=== PATIENT | female | born 1995 ===

== ENCOUNTER 2020-03-25 07:10 | Inpatient (IN) | payer BC ==
[2020-03-25] MEDS ORDERED: Nalbuphine 10 MG/1 ML Vial IVPUSH PRN (08:07)
[2020-03-25] MEDS ORDERED: Water For Irrigation,Sterile 1,000 ML Container IRR PRN (08:07)
[2020-03-25] MEDS ORDERED: Misoprostol 200 MCG Tab PO PRN (08:07)
[2020-03-25] MEDS ORDERED: Butorphanol 1 MG/ML SDV IVPUSH PRN (08:07)
[2020-03-25] MEDS ORDERED: Ondansetron 4 MG/2 ML SDV IVPUSH PRN (08:07)
[2020-03-25] MEDS ORDERED: Tranexamic Acid 1,000 MG in Sodium Chloride 0.9% 100 ML IV PRN (08:07)
[2020-03-25] MEDS ORDERED: Carboprost Tromethamine 250 MCG/1 ML Amp IM PRN (08:07)
[2020-03-25] MEDS ORDERED: Terbutaline 1 MG/ML SDV SUBCUT PRN (08:07)
[2020-03-25] MEDS ORDERED: Lidocaine 1% 50 ML MDV INJECT PRN (08:07)
[2020-03-25] MEDS ORDERED: Sodium Chloride 0.9% 10 ML SDV IV PRN (08:07)
[2020-03-25] MEDS ORDERED: Sodium Chloride 0.9% 2.5 ML Syringe FLUSH PRN (08:07)
[2020-03-25] MEDS ORDERED: Methylergonovine 0.2 MG/1 ML Amp IM PRN (08:07)
[2020-03-25] MEDS ORDERED: Misoprostol 25 MCG (1/4 of 100 MCG) Tab VAG PRN ×2 (08:07)
[2020-03-25] MEDS ORDERED: Sodium Chloride 0.9% 10 ML Syringe FLUSH PRN (08:07)
[2020-03-25] MEDS ORDERED: Oxytocin/0.9 % Sodium Chloride 30 UNIT/500 ML BAG IV SCH ×2 (08:15)
[2020-03-25] MEDS ORDERED: Ampicillin 2 GM in Sodium Chloride 0.9% 100 ML IV ONE (08:30)
[2020-03-25] MEDS ORDERED: Ampicillin 2 GM AdvVial IV ONE (09:38)
[2020-03-25] MEDS: Lactated Ringers 1,000 ML IV SCH ×2 (09:45→12:26)
[2020-03-25 09:56] LABS: BLOOD UREA NITROGEN,BUN 7 mg/dL (7.0-18.0); CARBON DIOXIDE,CO2 19.9 mmol/L (21.0-32.0); CHLORIDE,CL 105 mmol/L (98-107); GLUCOSE RANDOM 76 mg/dL (74-106); POTASSIUM,K 4.1 mmol/L (3.5-5.1); SODIUM,NA 137 mmol/L (136-145)
[2020-03-25] MEDS ORDERED: fentaNYL 100 MCG/2 ML SDV ONE ×2 (12:19→17:22)
[2020-03-25] MEDS ORDERED: Bupivacaine 0.25% 10 ML SDV ONE (12:20)
[2020-03-25] MEDS ORDERED: Bupivicaine/fentaNYL/NS 250 ML ONE (12:20)
[2020-03-25] MEDS ORDERED: Ampicillin 1 GM in Sodium Chloride 0.9% 100 ML IV ONE (12:30)
[2020-03-25] MEDS: Ampicillin 1 GM in Sodium Chloride 0.9% 50 ML IV SCH ×2 (12:44→16:16)
--- NOTE | 2020-03-25 12:55 | PCM.PREANE ---
Preanesthetic Assessment - Anesthesia/Transfusion/Family Hx Anesthesia History: No Prior Anesthesia Family History of Anesthesia Reaction: No - Review of Systems General: No Symptoms Pulmonary: No Symptoms Cardiovascular: No Symptoms Gastrointestinal: Abdominal Pain Neurological: No Symptoms - Physical Assessment NPO Status Date: 03/25/20 Height: 5 ft 7 in Weight: 78.018 kg ASA Class: 2 Airway Class: Mallampati = 2 Dentition: Reports: Normal Dentition ROM/Head Extension: Full Lungs: Clear to Auscultation - Lab Values: Laboratory Last Values WBC 8.85 K/uL (4.0-11.0) 03/25/20 09:13 RBC 3.77 M/uL (4.30-5.90) L 03/25/20 09:13 Hgb 11.5 g/dL (12.0-16.0) L 03/25/20 09:13 Hct 34.8 % (36.0-46.0) L 03/25/20 09:13 MCV 92.3 fL (80.0-98.0) 03/25/20 09:13 MCH 30.5 pg (27.0-32.0) 03/25/20 09:13 MCHC 33.0 g/dL (31.0-37.0) 03/25/20 09:13 RDW Std Deviation 43.5 fl (28.0-62.0) 03/25/20 09:13 RDW Coeff of Anna 13 % (11.0-15.0) 03/25/20 09:13 Plt Count 173 K/uL (150-400) 03/25/20 09:13 MPV 11.70 fL (7.40-12.00) 03/25/20 09:13 Nucleated RBC % 0.0 /100WBC 03/25/20 09:13 Nucleated RBCs # 0 K/uL 03/25/20 09:13 Sodium 137 mmol/L (136-145) 03/25/20 09:13 Potassium 4.1 mmol/L (3.5-5.1) 03/25/20 09:13 Chloride 105 mmol/L (98-107) 03/25/20 09:13 Carbon Dioxide 19.9 mmol/L (21.0-32.0) L 03/25/20 09:13 BUN 7 mg/dL (7.0-18.0) 03/25/20 09:13 Creatinine 0.6 mg/dL (0.6-1.0) 03/25/20 09:13 Est Cr Clr Drug Dosing 138.17 mL/min 03/25/20 09:13 Estimated GFR (MDRD) > 60.0 ml/min 03/25/20 09:13 Glucose 76 mg/dL (74-106) 03/25/20 09:13 Uric Acid 4.9 mg/dL (2.6-7.2) 03/25/20 09:13 Calcium 8.0 mg/dL (8.5-10.1) L 03/25/20 09:13 Total Bilirubin 0.2 mg/dL (0.2-1.0) 03/25/20 09:13 AST 30 IU/L (15-37) 03/25/20 09:13 ALT 40 IU/L (14-63) 03/25/20 09:13 Alkaline Phosphatase 177 U/L (46-116) H 03/25/20 09:13 Total Protein 6.0 g/dL (6.4-8.2) L 03/25/20 09:13 Albumin 2.5 g/dL (3.4-5.0) L 03/25/20 09:13 Globulin 3.5 g/dL (2.6-4.0) 03/25/20 09:13 Albumin/Globulin Ratio 0.7 (0.9-1.6) L 03/25/20 09:13 SARS-CoV-2 RNA (BINTA) NEGATIVE (NEGATIVE) 03/25/20 07:58 Blood Type O NEGATIVE 03/25/20 09:13 Antibody Screen NEGATIVE 03/25/20 09:13 - Allergies Allergies/Adverse Reactions: Allergies Allergy/AdvReac Type Severity Reaction Status Date / Time latex Allergy Hives Verified 03/09/20 21:35 - Acknowledgements Anesthesia Type Planned: Epidural Pt an Appropriate Candidate for the Planned Anesthesia: Yes Alternatives and Risks of Anesthesia Discussed w Pt/Guardian: Yes Pt/Guardian Understands and Agrees with Anesthesia Plan: Yes PreAnesthesia Questionnaire - HOME MEDS Home Medications: Home Meds Omeprazole Magnesium [Prilosec Otc] 1 tab PO DAILY PRN 03/09/20 [History] Pnv No.95/Ferrous Fum/Folic AC [ Tablet] 1 tab PO DAILY 03/09/20 [History] - CURRENT (IN HOUSE) MEDS Current Meds: Current Medications Butorphanol Tartrate (Stadol) 1 mg IVPUSH Q1H PRN PRN Reason: Pain Carboprost Tromethamine (Hemabate Ds) 250 mcg IM ASDIRECTED PRN PRN Reason: Post Hemorrhage Lactated Ringer's (Ringers, Lactated) 1,000 mls @ 150 mls/hr IV ASDIRECTED ANNA Last Admin: 03/25/20 12:26 Dose: 999 mls/hr Documented by: Oxytocin/Sodium Chloride (Oxytocin 30 Unit/500 Ml-Ns) 30 unit in 500 mls @ 999 mls/hr IV TITRATE ANNA Tranexamic Acid 1,000 mg/ (Sodium Chloride) 110 mls @ 660 mls/hr IV ONETIME PRN PRN Reason: Bleeding Oxytocin/Sodium Chloride (Oxytocin 30 Unit/500 Ml-Ns) 30 unit in 500 mls @ 2 mls/hr IV TITRATE [facility]; Protocol Ampicillin Sodium 1 gm/ Sodium (Chloride) 50 mls @ 100 mls/hr IV Q4H [facility] Last Admin: 03/25/20 12:44 Dose: 100 mls/hr Documented by: Lidocaine HCl (Xylocaine 1%) 50 ml INJECT ONETIME PRN PRN Reason: Laceration repair Methylergonovine Maleate (Methergine) 0.2 mg IM ASDIRECTED PRN PRN Reason: Post Hemorrhage Misoprostol (Cytotec) 200 mcg PO ONETIME PRN PRN Reason: Post Hemorrhage Misoprostol (Cytotec) 25 mcg VAG ONETIME PRN PRN Reason: Cervical Ripening Misoprostol (Cytotec) 25 mcg VAG Q4H PRN PRN Reason: Cervical Ripening Nalbuphine HCl (Nubain) 10 mg IVPUSH Q1H PRN PRN Reason: Pain (severe 7-10) Ondansetron HCl (Zofran) 4 mg IVPUSH Q4H PRN PRN Reason: Nausea/Vomiting Sodium Chloride (Saline Flush) 10 ml FLUSH ASDIRECTED PRN PRN Reason: Keep Vein Open Sodium Chloride (Saline Flush) 2.5 ml FLUSH ASDIRECTED PRN PRN Reason: Keep Vein Open Sodium Chloride (Normal Saline) 10 ml IV ASDIRECTED PRN PRN Reason: IV Use Sterile Water (Sterile Water For Irrigation) 1,000 ml IRR ASDIRECTED PRN PRN Reason: delivery Terbutaline Sulfate (Brethine) 0.25 mg SUBCUT ASDIRECTED PRN PRN Reason: Tacysystole Discontinued Medications Ampicillin Sodium (Ampicillin) Confirm Administered Dose 4 gm IV .STK-MED ONE Stop: 03/25/20 09:39 Bupivacaine HCl (Sensorcaine-Mpf 0.25%) Confirm Administered Dose 10 ml .ROUTE .STK-MED ONE Stop: 03/25/20 12:21 Fentanyl (Sublimaze) Confirm Administered Dose 100 mcg .ROUTE .STK-MED ONE Stop: 03/25/20 12:20 Ampicillin Sodium 2 gm/ Sodium (Chloride) 100 mls @ 200 mls/hr IV ONETIME ONE Stop: 03/25/20 08:59 Last Admin: 03/25/20 09:45 Dose: 200 mls/hr Documented by: Ampicillin Sodium 1 gm/ Sodium (Chloride) 100 mls @ 200 mls/hr IV ONETIME ONE Stop: 03/25/20 12:59 Fentanyl/Bupivacaine HCl (Fentanyl/Bupivacaine/Ns 2 Mcg-0.125% 250 Ml) Confirm Administered Dose 250 mls @ as directed .ROUTE .STK-MED ONE Stop: 03/25/20 12:21
[2020-03-25] MEDS ORDERED: Lidocaine 2% with EPINEPHrine 1:100,000 20 ML MDV ONE (17:22)
--- NOTE | 2020-03-25 17:49 | PCM.PRNOTE ---
- Free Text/Narrative Note: Anes Note Patient reports incomplete analgesia in lower pelvis and perineal area. A sitting dose consisting of 100mcg fentanyl plus 6 cc 0.2% ropivicaine was given in a slow divided dose. Time [facility] patient [phone] Gray Ferreira CRNA
[2020-03-25] MEDS ORDERED: Benzocaine/Menthol 20%-0.5% Spray 78 GM Cannister TOP PRN (19:15)
[2020-03-25] MEDS ORDERED: Witch Hazel Medicated Pads 40/Jar TOP PRN (19:15)
[2020-03-25] MEDS ORDERED: Ibuprofen 400 MG Tab PO PRN (19:15)
[2020-03-25] MEDS ORDERED: Bisacodyl 10 MG Supp RECTAL PRN (19:15)
[2020-03-25] MEDS ORDERED: Acetaminophen 500 MG Tab PO PRN (19:15)
[2020-03-25] MEDS ORDERED: oxyCODONE 5 MG Tab PO PRN (19:15)
[2020-03-25] MEDS ORDERED: Lanolin 100% Cream 7 GM Tube TOP PRN (19:15)
--- NOTE | 2020-03-25 19:22 | PCM.DEL ---
L & D Note - General Info Date of Service: 03/25/20 - Delivery Note Labor: Spontaneous Delivery Outcome: Livebirth Presentation: Left Occiput Anterior (MAGDA) Nuchal Cord: None Anesthesia Type: None, Epidural Amniotic Fluid Description: Clear Episiotomy Type: Right Mediolateral Laceration: 2nd Degree Suture type: Other (monocryl) Suture size: 2-0 Cord: 3 Vessels Estimated Blood Loss: 300 Resuscitation Needed: No Score 1 min: 8 Score 5 min: 8 Delivery Comments (Free Text/Narrative):: Live Male delivered at 622pm , 8/8 , weight 3740g , - General Info Date of Service: 03/25/20 - Patient Data Weight - Most Recent: 78.018 kg I&O - Last 24 Hours: Intake & Output 03/25/20 03/25/20 03/25/20 06:59 14:59 22:59 Intake Total 1100 50 Balance 1100 50 Lab Results Last 24 Hours: Laboratory Results - last 24 hr 03/25/20 03/25/20 03/25/20 Range/Units 07:58 09:13 09:13 WBC 8.85 (4.0-11.0) K/uL RBC 3.77 L (4.30-5.90) M/uL Hgb 11.5 L (12.0-16.0) g/dL Hct 34.8 L (36.0-46.0) % MCV 92.3 (80.0-98.0) fL MCH 30.5 (27.0-32.0) pg MCHC 33.0 (31.0-37.0) g/dL RDW Std Deviation 43.5 (28.0-62.0) fl RDW Coeff of Anna 13 (11.0-15.0) % Plt Count 173 (150-400) K/uL MPV 11.70 (7.40-12.00) fL Nucleated RBC % 0.0 /100WBC Nucleated RBCs # 0 K/uL Sodium 137 (136-145) mmol/L Potassium 4.1 (3.5-5.1) mmol/L Chloride 105 (98-107) mmol/L Carbon Dioxide 19.9 L (21.0-32.0) mmol/L BUN 7 (7.0-18.0) mg/dL Creatinine 0.6 (0.6-1.0) mg/dL Est Cr Clr Drug Dosing 138.17 mL/min Estimated GFR (MDRD) > 60.0 ml/min Glucose 76 (74-106) mg/dL Uric Acid (2.6-7.2) mg/dL Calcium 8.0 L (8.5-10.1) mg/dL Total Bilirubin 0.2 (0.2-1.0) mg/dL AST 30 (15-37) IU/L ALT 40 (14-63) IU/L Alkaline Phosphatase 177 H (46-116) U/L Total Protein 6.0 L (6.4-8.2) g/dL Albumin 2.5 L (3.4-5.0) g/dL Globulin 3.5 (2.6-4.0) g/dL Albumin/Globulin Ratio 0.7 L (0.9-1.6) Urine Color Urine Appearance Urine pH (5.0-8.0) Ur Specific [place] (1.001-1.035) Urine Protein (NEGATIVE) mg/dL Urine Glucose (UA) (NEGATIVE) mg/dL Urine Ketones (NEGATIVE) mg/dL Urine Occult Blood (NEGATIVE) Urine Nitrite (NEGATIVE) Urine Bilirubin (NEGATIVE) Urine Urobilinogen (<2.0) EU/dL Ur Leukocyte Esterase (NEGATIVE) Urine RBC (0-2/HPF) Urine WBC (0-5/HPF) Ur Epithelial Cells (NONE-FEW) Urine Bacteria (NEGATIVE) Ur Random Creatinine mg/dL U Random Total Protein (<11.9) mg/dL Protein/Creatinin Ratio SARS-CoV-2 RNA (BINTA) NEGATIVE (NEGATIVE) Blood Type Antibody Screen 03/25/20 03/25/20 03/25/20 Range/Units 09:13 09:13 14:33 WBC (4.0-11.0) K/uL RBC (4.30-5.90) M/uL Hgb (12.0-16.0) g/dL Hct (36.0-46.0) % MCV (80.0-98.0) fL MCH (27.0-32.0) pg MCHC (31.0-37.0) g/dL RDW Std Deviation (28.0-62.0) fl RDW Coeff of Anna (11.0-15.0) % Plt Count (150-400) K/uL MPV (7.40-12.00) fL Nucleated RBC % /100WBC Nucleated RBCs # K/uL Sodium (136-145) mmol/L Potassium (3.5-5.1) mmol/L Chloride (98-107) mmol/L Carbon Dioxide (21.0-32.0) mmol/L BUN (7.0-18.0) mg/dL Creatinine (0.6-1.0) mg/dL Est Cr Clr Drug Dosing mL/min Estimated GFR (MDRD) ml/min Glucose (74-106) mg/dL Uric Acid 4.9 (2.6-7.2) mg/dL Calcium (8.5-10.1) mg/dL Total Bilirubin (0.2-1.0) mg/dL AST (15-37) IU/L ALT (14-63) IU/L Alkaline Phosphatase (46-116) U/L Total Protein (6.4-8.2) g/dL Albumin (3.4-5.0) g/dL Globulin (2.6-4.0) g/dL Albumin/Globulin Ratio (0.9-1.6) Urine Color YELLOW Urine Appearance CLEAR Urine pH 6.5 (5.0-8.0) Ur Specific [place] 1.020 (1.001-1.035) Urine Protein 30 H (NEGATIVE) mg/dL Urine Glucose (UA) NEGATIVE (NEGATIVE) mg/dL Urine Ketones TRACE H (NEGATIVE) mg/dL Urine Occult Blood LARGE H (NEGATIVE) Urine Nitrite NEGATIVE (NEGATIVE) Urine Bilirubin NEGATIVE (NEGATIVE) Urine Urobilinogen 0.2 (<2.0) EU/dL Ur Leukocyte Esterase NEGATIVE (NEGATIVE) Urine RBC 12-15 (0-2/HPF) Urine WBC 0-1 (0-5/HPF) Ur Epithelial Cells RARE (NONE-FEW) Urine Bacteria RARE (NEGATIVE) Ur Random Creatinine mg/dL U Random Total Protein (<11.9) mg/dL Protein/Creatinin Ratio SARS-CoV-2 RNA (BINTA) (NEGATIVE) Blood Type O NEGATIVE Antibody Screen NEGATIVE 03/25/20 Range/Units 14:33 WBC (4.0-11.0) K/uL RBC (4.30-5.90) M/uL Hgb (12.0-16.0) g/dL Hct (36.0-46.0) % MCV (80.0-98.0) fL MCH (27.0-32.0) pg MCHC (31.0-37.0) g/dL RDW Std Deviation (28.0-62.0) fl RDW Coeff of Anna (11.0-15.0) % Plt Count (150-400) K/uL MPV (7.40-12.00) fL Nucleated RBC % /100WBC Nucleated RBCs # K/uL Sodium (136-145) mmol/L Potassium (3.5-5.1) mmol/L Chloride (98-107) mmol/L Carbon Dioxide (21.0-32.0) mmol/L BUN (7.0-18.0) mg/dL Creatinine (0.6-1.0) mg/dL Est Cr Clr Drug Dosing mL/min Estimated GFR (MDRD) ml/min Glucose (74-106) mg/dL Uric Acid (2.6-7.2) mg/dL Calcium (8.5-10.1) mg/dL Total Bilirubin (0.2-1.0) mg/dL AST (15-37) IU/L ALT (14-63) IU/L Alkaline Phosphatase (46-116) U/L Total Protein (6.4-8.2) g/dL Albumin (3.4-5.0) g/dL Globulin (2.6-4.0) g/dL Albumin/Globulin Ratio (0.9-1.6) Urine Color Urine Appearance Urine pH (5.0-8.0) Ur Specific [place] (1.001-1.035) Urine Protein (NEGATIVE) mg/dL Urine Glucose (UA) (NEGATIVE) mg/dL Urine Ketones (NEGATIVE) mg/dL Urine Occult Blood (NEGATIVE) Urine Nitrite (NEGATIVE) Urine Bilirubin (NEGATIVE) Urine Urobilinogen (<2.0) EU/dL Ur Leukocyte Esterase (NEGATIVE) Urine RBC (0-2/HPF) Urine WBC (0-5/HPF) Ur Epithelial Cells (NONE-FEW) Urine Bacteria (NEGATIVE) Ur Random Creatinine 114.9 mg/dL U Random Total Protein 64.0 H (<11.9) mg/dL Protein/Creatinin Ratio 0.6 SARS-CoV-2 RNA (BINTA) (NEGATIVE) Blood Type Antibody Screen Med Orders - Current: Current Medications Acetaminophen (Tylenol Extra Strength) 500 mg PO Q4H PRN PRN Reason: Pain Acetaminophen (Tylenol Extra Strength) 1,000 mg PO Q4H PRN PRN Reason: Pain Benzocaine/Menthol (Dermoplast Pain Relief 20%-0.5% [place]) 78 gm TOP ASDIRECTED PRN PRN Reason: Perineal Comfort Measure Bisacodyl (Dulcolax) 10 mg RECTAL ONETIME PRN PRN Reason: Constipation Butorphanol Tartrate (Stadol) 1 mg IVPUSH Q1H PRN PRN Reason: Pain Carboprost Tromethamine (Hemabate Ds) 250 mcg IM ASDIRECTED PRN PRN Reason: Post Hemorrhage Docusate Sodium (Colace) 100 mg PO BID PRN PRN Reason: Constipation Emollient Ointment (Lansinoh Hpa) 0 gm TOP ASDIRECTED PRN PRN Reason: Sore Nipples Lactated Ringer's (Ringers, Lactated) 1,000 mls @ 150 mls/hr IV ASDIRECTED [facility] Last Admin: 03/25/20 12:26 Dose: 999 mls/hr Documented by: Oxytocin/Sodium Chloride (Oxytocin 30 Unit/500 Ml-Ns) 30 unit in 500 mls @ 999 mls/hr IV TITRATE [facility] Last Admin: 03/25/20 18:34 Dose: 999 mls/hr Documented by: Tranexamic Acid 1,000 mg/ (Sodium Chloride) 110 mls @ 660 mls/hr IV ONETIME PRN PRN Reason: Bleeding Oxytocin/Sodium Chloride (Oxytocin 30 Unit/500 Ml-Ns) 30 unit in 500 mls @ 2 mls/hr IV TITRATE [facility]; Protocol Ibuprofen (Motrin) 400 mg PO Q4H PRN PRN Reason: Pain Ibuprofen (Motrin) 800 mg PO Q6H PRN PRN Reason: Pain Lidocaine HCl (Xylocaine 1%) 50 ml INJECT ONETIME PRN PRN Reason: Laceration repair Last Admin: 03/25/20 18:33 Dose: 50 ml Documented by: Methylergonovine Maleate (Methergine) 0.2 mg IM ASDIRECTED PRN PRN Reason: Post Hemorrhage Misoprostol (Cytotec) 25 mcg VAG ONETIME PRN PRN Reason: Cervical Ripening Misoprostol (Cytotec) 25 mcg VAG Q4H PRN PRN Reason: Cervical Ripening Nalbuphine HCl (Nubain) 10 mg IVPUSH Q1H PRN PRN Reason: Pain (severe 7-10) Ondansetron HCl (Zofran) 4 mg IVPUSH Q4H PRN PRN Reason: Nausea/Vomiting Oxycodone HCl (Oxycodone) 5 mg PO Q2H PRN PRN Reason: Pain Sodium Chloride (Saline Flush) 10 ml FLUSH ASDIRECTED PRN PRN Reason: Keep Vein Open Sodium Chloride (Saline Flush) 2.5 ml FLUSH ASDIRECTED PRN PRN Reason: Keep Vein Open Sodium Chloride (Normal Saline) 10 ml IV ASDIRECTED PRN PRN Reason: IV Use Sterile Water (Sterile Water For Irrigation) 1,000 ml IRR ASDIRECTED PRN PRN Reason: delivery Terbutaline Sulfate (Brethine) 0.25 mg SUBCUT ASDIRECTED PRN PRN Reason: Tacysystole Witch Maxine (Tucks) 1 pad TOP ASDIRECTED PRN PRN Reason: comfort care Discontinued Medications Ampicillin Sodium (Ampicillin) Confirm Administered Dose 4 gm IV .STK-MED ONE Stop: 03/25/20 09:39 Bupivacaine HCl (Sensorcaine-Mpf 0.25%) Confirm Administered Dose 10 ml .ROUTE .STK-MED ONE Stop: 03/25/20 12:21 Fentanyl (Sublimaze) Confirm Administered Dose 100 mcg .ROUTE .STK-MED ONE Stop: 03/25/20 12:20 Fentanyl (Sublimaze) Confirm Administered Dose 100 mcg .ROUTE .STK-MED ONE Stop: 03/25/20 17:23 Ampicillin Sodium 2 gm/ Sodium (Chloride) 100 mls @ 200 mls/hr IV ONETIME ONE Stop: 03/25/20 08:59 Last Admin: 03/25/20 09:45 Dose: 200 mls/hr Documented by: Ampicillin Sodium 1 gm/ Sodium (Chloride) 100 mls @ 200 mls/hr IV ONETIME ONE Stop: 03/25/20 12:59 Ampicillin Sodium 1 gm/ Sodium (Chloride) 50 mls @ 100 mls/hr IV Q4H [facility] Last Admin: 03/25/20 16:16 Dose: 100 mls/hr Documented by: Fentanyl/Bupivacaine HCl (Fentanyl/Bupivacaine/Ns 2 Mcg-0.125% 250 Ml) Confirm Administered Dose 250 mls @ as directed .ROUTE .STK-MED ONE Stop: 03/25/20 12:21 Misoprostol (Cytotec) 200 mcg PO ONETIME PRN PRN Reason: Post Hemorrhage - Problem List & Annotations (1) Preeclampsia SNOMED Code(s): 654292420 Code(s): O14.90 - UNSPECIFIED PRE-ECLAMPSIA, UNSPECIFIED TRIMESTER Status: Acute Current Visit: Yes Qualifiers: Trimester: third trimester Qualified Code(s): O14.93 - Unspecified pre- eclampsia, third trimester - Problem List Review Problem List Initiated/Reviewed/Updated: Yes - My Orders Last 24 Hours: My Active Orders 03/25/20 07:53 Patient Status [ADT] Routine Up ad Judit [RC] ASDIRECTED Vaginal Exam [RC] Click to Edit Vital Signs [RC] PER UNIT ROUTINE 03/25/20 19:15 RHIG WORKUP, [BBK] Routine Acetaminophen [Tylenol Extra Strength] 1,000 mg PO Q4H PRN Acetaminophen [Tylenol Extra Strength] 500 mg PO Q4H PRN Benzocaine/Menthol [Dermoplast Pain Relief 20%-0.5% [place]] 78 gm TOP ASDIRECTED PRN Docusate Sodium [Colace] 100 mg PO BID PRN Ibuprofen [Motrin] 400 mg PO Q4H PRN Ibuprofen [Motrin] 800 mg PO Q6H PRN Lanolin [Lansinoh HPA] See Dose Instructions TOP ASDIRECTED PRN bisacodyL [Dulcolax] 10 mg RECTAL ONETIME PRN oxyCODONE 5 mg PO Q2H PRN witch Maxine [Tucks] 1 pad TOP ASDIRECTED PRN Resuscitation Status Routine 03/25/20 19:16 Patient Status [ADT] Routine May Shower [RC] ASDIRECTED Up ad Judit [RC] ASDIRECTED Vital Signs [RC] PER UNIT ROUTINE Assess Lochia [WOMSER] Per Unit Routine Assess Uterine Involution [WOMSER] Per Unit Routine Peripheral IV Discontinue [OM.PC] Routine 03/26/20 05:11 HEMOGLOBIN/HEMATOCRIT,HH [HEME] Timed - Assessment Assessment:: 25yo P1 s/p PPD1 , preclampsia mild
[2020-03-25] MEDS: Docusate Sodium 100 MG Cap PO PRN (22:42)
[2020-03-25] MEDS: Ibuprofen 800 MG Tab PO PRN (22:42)
--- NOTE | 2020-03-26 07:19 | PCM48HPAN ---
Post Anesthesia Note - EVALUATION WITHIN 48HRS OF ANESTHETIC Vital Signs in Normal Range: Yes Patient Participated in Evaluation: Yes Respiratory Function Stable: Yes Airway Patent: Yes Cardiovascular Function Stable: Yes Hydration Status Stable: Yes Pain Control Satisfactory: Yes Nausea and Vomiting Control Satisfactory: Yes Mental Status Recovered: Yes Vital Signs: Last Vital Signs Temp 36.1 C 03/26/20 04:31 Pulse 66 03/26/20 04:31 Resp 17 03/26/20 04:31 BP 138/81 03/26/20 04:31 Pulse Ox 95 03/26/20 04:31
[2020-03-26] MEDS: Acetaminophen 500 MG Tab PO PRN (08:00)
[2020-03-26] MEDS: Docusate Sodium 100 MG Cap PO PRN (08:02)
--- NOTE | 2020-03-26 09:29 | PCM.PNPP ---
- General Info Date of Service: 03/26/20 Subjective Update: 25yo P1 s/p PPD1 denies headache , RUQ pain and BV Normal lochia Functional Status: Reports: Pain Controlled, Tolerating Diet, Ambulating, Urinating - Review of Systems General: Reports: No Symptoms HEENT: Reports: No Symptoms Pulmonary: Reports: No Symptoms Cardiovascular: Reports: No Symptoms Gastrointestinal: Reports: No Symptoms Genitourinary: Reports: No Symptoms Musculoskeletal: Reports: No Symptoms Skin: Reports: No Symptoms Neurological: Reports: No Symptoms Psychiatric: Reports: No Symptoms - General Info Date of Service: 03/26/20 - Patient Data Vital Signs - Most Recent: Last Vital Signs Temp 36.1 C 03/26/20 07:46 Pulse 61 03/26/20 07:46 Resp 12 03/26/20 07:46 BP 132/72 03/26/20 07:46 Pulse Ox 96 03/26/20 07:46 Weight - Most Recent: 78.018 kg I&O - Last 24 Hours: Intake & Output 03/25/20 03/26/20 03/26/20 22:59 06:59 14:59 Intake Total 950 Output Total 150 Balance 800 Lab Results - Last 24 Hours: Laboratory Results - last 24 hr 03/25/20 03/25/20 03/25/20 Range/Units 07:58 09:13 09:13 WBC 8.85 (4.0-11.0) K/uL RBC 3.77 L (4.30-5.90) M/uL Hgb 11.5 L (12.0-16.0) g/dL Hct 34.8 L (36.0-46.0) % MCV 92.3 (80.0-98.0) fL MCH 30.5 (27.0-32.0) pg MCHC 33.0 (31.0-37.0) g/dL RDW Std Deviation 43.5 (28.0-62.0) fl RDW Coeff of Anna 13 (11.0-15.0) % Plt Count 173 (150-400) K/uL MPV 11.70 (7.40-12.00) fL Nucleated RBC % 0.0 /100WBC Nucleated RBCs # 0 K/uL Sodium 137 (136-145) mmol/L Potassium 4.1 (3.5-5.1) mmol/L Chloride 105 (98-107) mmol/L Carbon Dioxide 19.9 L (21.0-32.0) mmol/L BUN 7 (7.0-18.0) mg/dL Creatinine 0.6 (0.6-1.0) mg/dL Est Cr Clr Drug Dosing 138.17 mL/min Estimated GFR (MDRD) > 60.0 ml/min Glucose 76 (74-106) mg/dL Uric Acid (2.6-7.2) mg/dL Calcium 8.0 L (8.5-10.1) mg/dL Total Bilirubin 0.2 (0.2-1.0) mg/dL AST 30 (15-37) IU/L ALT 40 (14-63) IU/L Alkaline Phosphatase 177 H (46-116) U/L Total Protein 6.0 L (6.4-8.2) g/dL Albumin 2.5 L (3.4-5.0) g/dL Globulin 3.5 (2.6-4.0) g/dL Albumin/Globulin Ratio 0.7 L (0.9-1.6) Urine Color Urine Appearance Urine pH (5.0-8.0) Ur Specific [place] (1.001-1.035) Urine Protein (NEGATIVE) mg/dL Urine Glucose (UA) (NEGATIVE) mg/dL Urine Ketones (NEGATIVE) mg/dL Urine Occult Blood (NEGATIVE) Urine Nitrite (NEGATIVE) Urine Bilirubin (NEGATIVE) Urine Urobilinogen (<2.0) EU/dL Ur Leukocyte Esterase (NEGATIVE) Urine RBC (0-2/HPF) Urine WBC (0-5/HPF) Ur Epithelial Cells (NONE-FEW) Urine Bacteria (NEGATIVE) Ur Random Creatinine mg/dL U Random Total Protein (<11.9) mg/dL Protein/Creatinin Ratio SARS-CoV-2 RNA (BINTA) NEGATIVE (NEGATIVE) Blood Type Antibody Screen Rhogam Indicated 03/25/20 03/25/20 03/25/20 Range/Units 09:13 09:13 14:33 WBC (4.0-11.0) K/uL RBC (4.30-5.90) M/uL Hgb (12.0-16.0) g/dL Hct (36.0-46.0) % MCV (80.0-98.0) fL MCH (27.0-32.0) pg MCHC (31.0-37.0) g/dL RDW Std Deviation (28.0-62.0) fl RDW Coeff of Anna (11.0-15.0) % Plt Count (150-400) K/uL MPV (7.40-12.00) fL Nucleated RBC % /100WBC Nucleated RBCs # K/uL Sodium (136-145) mmol/L Potassium (3.5-5.1) mmol/L Chloride (98-107) mmol/L Carbon Dioxide (21.0-32.0) mmol/L BUN (7.0-18.0) mg/dL Creatinine (0.6-1.0) mg/dL Est Cr Clr Drug Dosing mL/min Estimated GFR (MDRD) ml/min Glucose (74-106) mg/dL Uric Acid 4.9 (2.6-7.2) mg/dL Calcium (8.5-10.1) mg/dL Total Bilirubin (0.2-1.0) mg/dL AST (15-37) IU/L ALT (14-63) IU/L Alkaline Phosphatase (46-116) U/L Total Protein (6.4-8.2) g/dL Albumin (3.4-5.0) g/dL Globulin (2.6-4.0) g/dL Albumin/Globulin Ratio (0.9-1.6) Urine Color YELLOW Urine Appearance CLEAR Urine pH 6.5 (5.0-8.0) Ur Specific [place] 1.020 (1.001-1.035) Urine Protein 30 H (NEGATIVE) mg/dL Urine Glucose (UA) NEGATIVE (NEGATIVE) mg/dL Urine Ketones TRACE H (NEGATIVE) mg/dL Urine Occult Blood LARGE H (NEGATIVE) Urine Nitrite NEGATIVE (NEGATIVE) Urine Bilirubin NEGATIVE (NEGATIVE) Urine Urobilinogen 0.2 (<2.0) EU/dL Ur Leukocyte Esterase NEGATIVE (NEGATIVE) Urine RBC 12-15 (0-2/HPF) Urine WBC 0-1 (0-5/HPF) Ur Epithelial Cells RARE (NONE-FEW) Urine Bacteria RARE (NEGATIVE) Ur Random Creatinine mg/dL U Random Total Protein (<11.9) mg/dL Protein/Creatinin Ratio SARS-CoV-2 RNA (BINTA) (NEGATIVE) Blood Type O NEGATIVE Antibody Screen NEGATIVE Rhogam Indicated 03/25/20 03/25/20 03/26/20 Range/Units 14:33 19:51 05:35 WBC (4.0-11.0) K/uL RBC (4.30-5.90) M/uL Hgb 10.2 L (12.0-16.0) g/dL Hct 31.1 L (36.0-46.0) % MCV (80.0-98.0) fL MCH (27.0-32.0) pg MCHC (31.0-37.0) g/dL RDW Std Deviation (28.0-62.0) fl RDW Coeff of Anna (11.0-15.0) % Plt Count (150-400) K/uL MPV (7.40-12.00) fL Nucleated RBC % /100WBC Nucleated RBCs # K/uL Sodium (136-145) mmol/L Potassium (3.5-5.1) mmol/L Chloride (98-107) mmol/L Carbon Dioxide (21.0-32.0) mmol/L BUN (7.0-18.0) mg/dL Creatinine (0.6-1.0) mg/dL Est Cr Clr Drug Dosing mL/min Estimated GFR (MDRD) ml/min Glucose (74-106) mg/dL Uric Acid (2.6-7.2) mg/dL Calcium (8.5-10.1) mg/dL Total Bilirubin (0.2-1.0) mg/dL AST (15-37) IU/L ALT (14-63) IU/L Alkaline Phosphatase (46-116) U/L Total Protein (6.4-8.2) g/dL Albumin (3.4-5.0) g/dL Globulin (2.6-4.0) g/dL Albumin/Globulin Ratio (0.9-1.6) Urine Color Urine Appearance Urine pH (5.0-8.0) Ur Specific [place] (1.001-1.035) Urine Protein (NEGATIVE) mg/dL Urine Glucose (UA) (NEGATIVE) mg/dL Urine Ketones (NEGATIVE) mg/dL Urine Occult Blood (NEGATIVE) Urine Nitrite (NEGATIVE) Urine Bilirubin (NEGATIVE) Urine Urobilinogen (<2.0) EU/dL Ur Leukocyte Esterase (NEGATIVE) Urine RBC (0-2/HPF) Urine WBC (0-5/HPF) Ur Epithelial Cells (NONE-FEW) Urine Bacteria (NEGATIVE) Ur Random Creatinine 114.9 mg/dL U Random Total Protein 64.0 H (<11.9) mg/dL Protein/Creatinin Ratio 0.6 SARS-CoV-2 RNA (BINTA) (NEGATIVE) Blood Type Antibody Screen Rhogam Indicated NO, MOM+BABY RH NEG Med Orders - Current: Current Medications Acetaminophen (Tylenol Extra Strength) 500 mg PO Q4H PRN PRN Reason: Pain Acetaminophen (Tylenol Extra Strength) 1,000 mg PO Q4H PRN PRN Reason: Pain Last Admin: 03/26/20 08:00 Dose: 1,000 mg Documented by: Benzocaine/Menthol (Dermoplast Pain Relief 20%-0.5% [place]) 78 gm TOP ASDIRECTED PRN PRN Reason: Perineal Comfort Measure Last Admin: 03/25/20 22:40 Dose: 1 can Documented by: Bisacodyl (Dulcolax) 10 mg RECTAL ONETIME PRN PRN Reason: Constipation Butorphanol Tartrate (Stadol) 1 mg IVPUSH Q1H PRN PRN Reason: Pain Carboprost Tromethamine (Hemabate Ds) 250 mcg IM ASDIRECTED PRN PRN Reason: Post Hemorrhage Docusate Sodium (Colace) 100 mg PO BID PRN PRN Reason: Constipation Last Admin: 03/26/20 08:02 Dose: 100 mg Documented by: Emollient Ointment (Lansinoh Hpa) 0 gm TOP ASDIRECTED PRN PRN Reason: Sore Nipples Last Admin: 03/25/20 22:41 Dose: 1 tube Documented by: Lactated Ringer's (Ringers, Lactated) 1,000 mls @ 150 mls/hr IV ASDIRECTED ANNA Last Admin: 03/25/20 12:26 Dose: 999 mls/hr Documented by: Oxytocin/Sodium Chloride (Oxytocin 30 Unit/500 Ml-Ns) 30 unit in 500 mls @ 999 mls/hr IV TITRATE [facility] Last Admin: 03/25/20 18:34 Dose: 999 mls/hr Documented by: Tranexamic Acid 1,000 mg/ (Sodium Chloride) 110 mls @ 660 mls/hr IV ONETIME PRN PRN Reason: Bleeding Oxytocin/Sodium Chloride (Oxytocin 30 Unit/500 Ml-Ns) 30 unit in 500 mls @ 2 mls/hr IV TITRATE ANNA; Protocol Ibuprofen (Motrin) 400 mg PO Q4H PRN PRN Reason: Pain Ibuprofen (Motrin) 800 mg PO Q6H PRN PRN Reason: Pain Last Admin: 03/25/20 22:42 Dose: 800 mg Documented by: Lidocaine HCl (Xylocaine 1%) 50 ml INJECT ONETIME PRN PRN Reason: Laceration repair Last Admin: 03/25/20 18:33 Dose: 50 ml Documented by: Methylergonovine Maleate (Methergine) 0.2 mg IM ASDIRECTED PRN PRN Reason: Post Hemorrhage Misoprostol (Cytotec) 25 mcg VAG ONETIME PRN PRN Reason: Cervical Ripening Misoprostol (Cytotec) 25 mcg VAG Q4H PRN PRN Reason: Cervical Ripening Nalbuphine HCl (Nubain) 10 mg IVPUSH Q1H PRN PRN Reason: Pain (severe 7-10) Ondansetron HCl (Zofran) 4 mg IVPUSH Q4H PRN PRN Reason: Nausea/Vomiting Oxycodone HCl (Oxycodone) 5 mg PO Q2H PRN PRN Reason: Pain Sodium Chloride (Saline Flush) 10 ml FLUSH ASDIRECTED PRN PRN Reason: Keep Vein Open Sodium Chloride (Saline Flush) 2.5 ml FLUSH ASDIRECTED PRN PRN Reason: Keep Vein Open Sodium Chloride (Normal Saline) 10 ml IV ASDIRECTED PRN PRN Reason: IV Use Sterile Water (Sterile Water For Irrigation) 1,000 ml IRR ASDIRECTED PRN PRN Reason: delivery Terbutaline Sulfate (Brethine) 0.25 mg SUBCUT ASDIRECTED PRN PRN Reason: Tacysystole Witch Maxine (Tucks) 1 pad TOP ASDIRECTED PRN PRN Reason: comfort care Last Admin: 03/25/20 22:40 Dose: 1 tub Documented by: Discontinued Medications Ampicillin Sodium (Ampicillin) Confirm Administered Dose 4 gm IV .STK-MED ONE Stop: 03/25/20 09:39 Last Admin: 03/25/20 19:52 Dose: Not Given Documented by: Bupivacaine HCl (Sensorcaine-Mpf 0.25%) Confirm Administered Dose 10 ml .ROUTE .STK-MED ONE Stop: 03/25/20 12:21 Last Admin: 03/25/20 19:52 Dose: Not Given Documented by: Fentanyl (Sublimaze) Confirm Administered Dose 100 mcg .ROUTE .STK-MED ONE Stop: 03/25/20 12:20 Last Admin: 03/25/20 19:52 Dose: Not Given Documented by: Fentanyl (Sublimaze) Confirm Administered Dose 100 mcg .ROUTE .STK-MED ONE Stop: 03/25/20 17:23 Last Admin: 03/25/20 19:52 Dose: Not Given Documented by: Ampicillin Sodium 2 gm/ Sodium (Chloride) 100 mls @ 200 mls/hr IV ONETIME ONE Stop: 03/25/20 08:59 Last Admin: 03/25/20 09:45 Dose: 200 mls/hr Documented by: Ampicillin Sodium 1 gm/ Sodium (Chloride) 100 mls @ 200 mls/hr IV ONETIME ONE Stop: 03/25/20 12:59 Ampicillin Sodium 1 gm/ Sodium (Chloride) 50 mls @ 100 mls/hr IV Q4H ANNA Last Admin: 03/25/20 16:16 Dose: 100 mls/hr Documented by: Fentanyl/Bupivacaine HCl (Fentanyl/Bupivacaine/Ns 2 Mcg-0.125% 250 Ml) Confirm Administered Dose 250 mls @ as directed .ROUTE .STK-MED ONE Stop: 03/25/20 12:21 Last Admin: 03/25/20 19:52 Dose: Not Given Documented by: Misoprostol (Cytotec) 200 mcg PO ONETIME PRN PRN Reason: Post Hemorrhage - Interaction Support Person: - Recovery Exam Fundal Tone: Firm Fundal Level: At Umbilicus Fundal Placement: Midline Lochia Amount: Small Lochia Color: Rubra/Red Perineum Description: Intact, Minimal Bruising/Swelling Episiotomy/Laceration: Approximated Bladder Status: Voiding Urinary Elimination: Voided - Exam General: Alert HEENT: Pupils Equal Neck: Supple Lungs: Clear to Auscultation Cardiovascular: Regular Rate, Regular Rhythm GI/Abdominal Exam: Normal Bowel Sounds Extremities: Normal Inspection Neurological: No New Focal Deficit Psy/Mental Status: Alert - Problem List & Annotations (1) Preeclampsia SNOMED Code(s): 865328542 Code(s): O14.90 - UNSPECIFIED PRE-ECLAMPSIA, UNSPECIFIED TRIMESTER Status: Acute Current Visit: Yes Qualifiers: Trimester: third trimester Qualified Code(s): O14.93 - Unspecified pre- eclampsia, third trimester - Problem List Review Problem List Initiated/Reviewed/Updated: Yes - My Orders Last 24 Hours: My Active Orders 03/25/20 19:15 Acetaminophen [Tylenol Extra Strength] 1,000 mg PO Q4H PRN Acetaminophen [Tylenol Extra Strength] 500 mg PO Q4H PRN Benzocaine/Menthol [Dermoplast Pain Relief 20%-0.5% [place]] 78 gm TOP ASDIRECTED PRN Docusate Sodium [Colace] 100 mg PO BID PRN Ibuprofen [Motrin] 400 mg PO Q4H PRN Ibuprofen [Motrin] 800 mg PO Q6H PRN Lanolin [Lansinoh HPA] See Dose Instructions TOP ASDIRECTED PRN bisacodyL [Dulcolax] 10 mg RECTAL ONETIME PRN oxyCODONE 5 mg PO Q2H PRN witch Maxine [Tucks] 1 pad TOP ASDIRECTED PRN Resuscitation Status Routine 03/25/20 19:16 Patient Status [ADT] Routine May Shower [RC] ASDIRECTED Up ad Judit [RC] ASDIRECTED Vital Signs [RC] PER UNIT ROUTINE Assess Lochia [WOMSER] Per Unit Routine Assess Uterine Involution [WOMSER] Per Unit Routine Peripheral IV Discontinue [OM.PC] Routine - Assessment Assessment:: 25yo P1 s/p PPD1 , preclampsia mild, normal BPs today ,normal lochia - Plan Plan:: Routine care Discharge home with preclampsia precautions Pain control as needed
[2020-03-26] MEDS: Ibuprofen 800 MG Tab PO PRN (16:15)
[2020-03-26] MEDS ORDERED: Labetalol 100 MG Tab PO SCH (17:45)
[2020-03-26 18:32] LABS: BLOOD UREA NITROGEN,BUN 7 mg/dL (7.0-18.0); CARBON DIOXIDE,CO2 22.3 mmol/L (21.0-32.0); CHLORIDE,CL 107 mmol/L (98-107); GLUCOSE RANDOM 96 mg/dL (74-106); POTASSIUM,K 4.2 mmol/L (3.5-5.1); SODIUM,NA 139 mmol/L (136-145)
[2020-03-27] MEDS: Acetaminophen 500 MG Tab PO PRN (03:57)
[2020-03-27] MEDS ORDERED: Labetalol 100 MG Tab PO SCH (06:30)
--- NOTE | 2020-03-27 07:16 | PCM.SN.2 ---
- Free Text/Narrative Note: Informed that patient has BP of 140 - 150s/80s - 90s , she denied headache , RUQ pain and BV . AST - slightly elevated , other labs normal. Plan; Start labetalol 100mg bid Call if BP > 160/110
[2020-03-27] MEDS ORDERED: Calcium Gluconate 10% 1 GM/10 ML SDV IV PRN ×2 (07:40→07:51)
[2020-03-27] MEDS ORDERED: Magnesium Sulfate/Water 4 GM in Premix Bag 1 BAG IV ONE (07:40)
--- NOTE | 2020-03-27 07:46 | PCM.PNPP ---
- General Info Date of Service: 03/27/20 Subjective Update: 25yo P1 s/p PPD2 denies headache , RUQ pain and BV Normal lochia Elevated BP this AM , Functional Status: Reports: Pain Controlled, Tolerating Diet, Ambulating, Urinating - Review of Systems General: Reports: No Symptoms HEENT: Reports: No Symptoms Pulmonary: Reports: No Symptoms Cardiovascular: Reports: No Symptoms Gastrointestinal: Reports: No Symptoms Genitourinary: Reports: No Symptoms Musculoskeletal: Reports: No Symptoms Skin: Reports: No Symptoms Neurological: Reports: No Symptoms Psychiatric: Reports: No Symptoms - General Info Date of Service: 03/27/20 - Patient Data Vital Signs - Most Recent: Last Vital Signs Temp 35.7 C L 03/27/20 05:23 Pulse 54 L 03/27/20 06:33 Resp 17 03/27/20 05:23 BP 166/75 H 03/27/20 06:33 Pulse Ox 97 03/27/20 05:23 Weight - Most Recent: 78.018 kg Lab Results - Last 24 Hours: Laboratory Results - last 24 hr 03/26/20 03/26/20 Range/Units 18:08 18:08 WBC 11.89 H (4.0-11.0) K/uL RBC 3.43 L (4.30-5.90) M/uL Hgb 10.7 L (12.0-16.0) g/dL Hct 32.1 L (36.0-46.0) % MCV 93.6 (80.0-98.0) fL MCH 31.2 (27.0-32.0) pg MCHC 33.3 (31.0-37.0) g/dL RDW Std Deviation 45.1 (28.0-62.0) fl RDW Coeff of Anna 13 (11.0-15.0) % Plt Count 172 (150-400) K/uL MPV 11.60 (7.40-12.00) fL Neut % (Auto) 73.0 (48.0-80.0) % Lymph % (Auto) 16.5 (16.0-40.0) % [place] % (Auto) 9.5 (0.0-15.0) % Eos % (Auto) 0.9 (0.0-7.0) % Baso % (Auto) 0.1 (0.0-1.5) % Neut # (Auto) 8.7 H (1.4-5.7) K/uL Lymph # (Auto) 2.0 (0.6-2.4) K/uL [place] # (Auto) 1.1 H (0.0-0.8) K/uL Eos # (Auto) 0.1 (0.0-0.7) K/uL Baso # (Auto) 0.0 (0.0-0.1) K/uL Nucleated RBC % 0.0 /100WBC Nucleated RBCs # 0 K/uL Sodium 139 (136-145) mmol/L Potassium 4.2 (3.5-5.1) mmol/L Chloride 107 (98-107) mmol/L Carbon Dioxide 22.3 (21.0-32.0) mmol/L BUN 7 (7.0-18.0) mg/dL Creatinine 0.7 (0.6-1.0) mg/dL Est Cr Clr Drug Dosing 118.43 mL/min Estimated GFR (MDRD) > 60.0 ml/min Glucose 96 (74-106) mg/dL Uric Acid 4.1 (2.6-7.2) mg/dL Calcium 8.0 L (8.5-10.1) mg/dL Total Bilirubin 0.1 L (0.2-1.0) mg/dL AST 40 H (15-37) IU/L ALT 35 (14-63) IU/L Alkaline Phosphatase 148 H (46-116) U/L Total Protein 5.6 L (6.4-8.2) g/dL Albumin 2.3 L (3.4-5.0) g/dL Globulin 3.3 (2.6-4.0) g/dL Albumin/Globulin Ratio 0.7 L (0.9-1.6) Med Orders - Current: Current Medications Acetaminophen (Tylenol Extra Strength) 500 mg PO Q4H PRN PRN Reason: Pain Acetaminophen (Tylenol Extra Strength) 1,000 mg PO Q4H PRN PRN Reason: Pain Last Admin: 03/27/20 03:57 Dose: 1,000 mg Documented by: Benzocaine/Menthol (Dermoplast Pain Relief 20%-0.5% [place]) 78 gm TOP ASDIRECTED PRN PRN Reason: Perineal Comfort Measure Last Admin: 03/25/20 22:40 Dose: 1 can Documented by: Bisacodyl (Dulcolax) 10 mg RECTAL ONETIME PRN PRN Reason: Constipation Butorphanol Tartrate (Stadol) 1 mg IVPUSH Q1H PRN PRN Reason: Pain Carboprost Tromethamine (Hemabate Ds) 250 mcg IM ASDIRECTED PRN PRN Reason: Post Hemorrhage Docusate Sodium (Colace) 100 mg PO BID PRN PRN Reason: Constipation Last Admin: 03/26/20 08:02 Dose: 100 mg Documented by: Emollient Ointment (Lansinoh Hpa) 0 gm TOP ASDIRECTED PRN PRN Reason: Sore Nipples Last Admin: 03/25/20 22:41 Dose: 1 tube Documented by: Lactated Ringer's (Ringers, Lactated) 1,000 mls @ 150 mls/hr IV ASDIRECTED [facility] Last Admin: 03/25/20 12:26 Dose: 999 mls/hr Documented by: Oxytocin/Sodium Chloride (Oxytocin 30 Unit/500 Ml-Ns) 30 unit in 500 mls @ 999 mls/hr IV TITRATE [facility] Last Admin: 03/25/20 18:34 Dose: 999 mls/hr Documented by: Tranexamic Acid 1,000 mg/ (Sodium Chloride) 110 mls @ 660 mls/hr IV ONETIME PRN PRN Reason: Bleeding Oxytocin/Sodium Chloride (Oxytocin 30 Unit/500 Ml-Ns) 30 unit in 500 mls @ 2 mls/hr IV TITRATE [facility]; Protocol Ibuprofen (Motrin) 400 mg PO Q4H PRN PRN Reason: Pain Ibuprofen (Motrin) 800 mg PO Q6H PRN PRN Reason: Pain Last Admin: 03/26/20 16:15 Dose: 800 mg Documented by: Labetalol HCl (Normodyne) 200 mg PO BID [facility] Lidocaine HCl (Xylocaine 1%) 50 ml INJECT ONETIME PRN PRN Reason: Laceration repair Last Admin: 03/25/20 18:33 Dose: 50 ml Documented by: Methylergonovine Maleate (Methergine) 0.2 mg IM ASDIRECTED PRN PRN Reason: Post Hemorrhage Misoprostol (Cytotec) 25 mcg VAG ONETIME PRN PRN Reason: Cervical Ripening Misoprostol (Cytotec) 25 mcg VAG Q4H PRN PRN Reason: Cervical Ripening Nalbuphine HCl (Nubain) 10 mg IVPUSH Q1H PRN PRN Reason: Pain (severe 7-10) Ondansetron HCl (Zofran) 4 mg IVPUSH Q4H PRN PRN Reason: Nausea/Vomiting Oxycodone HCl (Oxycodone) 5 mg PO Q2H PRN PRN Reason: Pain Sodium Chloride (Saline Flush) 10 ml FLUSH ASDIRECTED PRN PRN Reason: Keep Vein Open Sodium Chloride (Saline Flush) 2.5 ml FLUSH ASDIRECTED PRN PRN Reason: Keep Vein Open Sodium Chloride (Normal Saline) 10 ml IV ASDIRECTED PRN PRN Reason: IV Use Sterile Water (Sterile Water For Irrigation) 1,000 ml IRR ASDIRECTED PRN PRN Reason: delivery Terbutaline Sulfate (Brethine) 0.25 mg SUBCUT ASDIRECTED PRN PRN Reason: Tacysystole Witch Maxine (Tucks) 1 pad TOP ASDIRECTED PRN PRN Reason: comfort care Last Admin: 03/25/20 22:40 Dose: 1 tub Documented by: Discontinued Medications Ampicillin Sodium (Ampicillin) Confirm Administered Dose 4 gm IV .STK-MED ONE Stop: 03/25/20 09:39 Last Admin: 03/25/20 19:52 Dose: Not Given Documented by: Bupivacaine HCl (Sensorcaine-Mpf 0.25%) Confirm Administered Dose 10 ml .ROUTE .STK-MED ONE Stop: 03/25/20 12:21 Last Admin: 03/25/20 19:52 Dose: Not Given Documented by: Fentanyl (Sublimaze) Confirm Administered Dose 100 mcg .ROUTE .STK-MED ONE Stop: 03/25/20 12:20 Last Admin: 03/25/20 19:52 Dose: Not Given Documented by: Fentanyl (Sublimaze) Confirm Administered Dose 100 mcg .ROUTE .STK-MED ONE Stop: 03/25/20 17:23 Last Admin: 03/25/20 19:52 Dose: Not Given Documented by: Ampicillin Sodium 2 gm/ Sodium (Chloride) 100 mls @ 200 mls/hr IV ONETIME ONE Stop: 03/25/20 08:59 Last Admin: 03/25/20 09:45 Dose: 200 mls/hr Documented by: Ampicillin Sodium 1 gm/ Sodium (Chloride) 100 mls @ 200 mls/hr IV ONETIME ONE Stop: 03/25/20 12:59 Ampicillin Sodium 1 gm/ Sodium (Chloride) 50 mls @ 100 mls/hr IV Q4H [facility] Last Admin: 03/25/20 16:16 Dose: 100 mls/hr Documented by: Fentanyl/Bupivacaine HCl (Fentanyl/Bupivacaine/Ns 2 Mcg-0.125% 250 Ml) Confirm Administered Dose 250 mls @ as directed .ROUTE .STK-MED ONE Stop: 03/25/20 12:21 Last Admin: 03/25/20 19:52 Dose: Not Given Documented by: Labetalol HCl (Normodyne) 100 mg PO BID [facility] Last Admin: 03/26/20 17:43 Dose: 100 mg Documented by: Labetalol HCl (Normodyne) 200 mg PO BID [facility] Stop: 03/27/20 07:30 Last Admin: 03/27/20 06:33 Dose: 200 mg Documented by: Lidocaine/Epinephrine (Xylocaine 2% With Epinephrine 1:100,000) 20 ml .XX .STK- MED ONE Stop: 03/25/20 17:23 Misoprostol (Cytotec) 200 mcg PO ONETIME PRN PRN Reason: Post Hemorrhage - Infant Interaction Support Person: - Recovery Exam Fundal Tone: Firm Fundal Level: 1 Fingerbreadths Below Umbilicus Fundal Placement: Midline Lochia Amount: Scant Lochia Color: Rubra/Red Perineum Description: Intact, Minimal Bruising/Swelling Episiotomy/Laceration: Approximated Bladder Status: Voiding Urinary Elimination: Voided - Exam General: Alert HEENT: Pupils Equal Neck: Supple Lungs: Clear to Auscultation Cardiovascular: Regular Rate, Regular Rhythm GI/Abdominal Exam: Normal Bowel Sounds Psy/Mental Status: Alert - Problem List & Annotations (1) Preeclampsia SNOMED Code(s): 347412884 Code(s): O14.90 - UNSPECIFIED PRE-ECLAMPSIA, UNSPECIFIED TRIMESTER Status: Acute Current Visit: Yes Qualifiers: Trimester: third trimester Qualified Code(s): O14.93 - Unspecified pre- eclampsia, third trimester - Problem List Review Problem List Initiated/Reviewed/Updated: Yes - My Orders Last 24 Hours: My Active Orders 03/26/20 09:30 Ready for Discharge [RC] PER UNIT ROUTINE 03/27/20 07:40 Patient Status [ADT] Routine Bedrest [RC] ASDIRECTED Communication Order [RC] PRN Communication Order [RC] PRN Equipment to Bedside [RC] PRN Height and Weight [RC] DAILY Intake and Output [RC] QSHIFT Notify Provider Status Change [RC] ASDIRECTED Notify Provider [RC] PRN Oxygen Therapy [RC] PRN Vital Signs [RC] ASDIRECTED Calcium Gluconate 1 gm IV ASDIRECTED PRN Magnesium Sulfate/Water [Magnesium Sulfate in Water Premix] 4 gm Premix Bag 1 bag IV BOLUS Electronic Heart Tones Ext w TOCO [WOMSER] Per Unit Routine 03/27/20 07:41 Heart Tones [RC] ASDIRECTED 03/27/20 07:45 MAGNESIUM [CHEM] Q6H Magnesium Sulfate/Water [Magnesium Sulfate in Water Premix] 20 gm in 500 ml IV ASDIRECTED Deep Tendon Reflexes [WOMSER] Q1H 03/27/20 08:45 Deep Tendon Reflexes [WOMSER] Q1H 03/27/20 09:45 Deep Tendon Reflexes [WOMSER] Q1H 03/27/20 10:45 Deep Tendon Reflexes [WOMSER] Q1H 03/27/20 11:45 Deep Tendon Reflexes [WOMSER] Q1H 03/27/20 12:45 Deep Tendon Reflexes [WOMSER] Q1H 03/27/20 13:45 MAGNESIUM [CHEM] Q6H Deep Tendon Reflexes [WOMSER] Q1H 03/27/20 14:45 Deep Tendon Reflexes [WOMSER] Q1H 03/27/20 15:45 Deep Tendon Reflexes [WOMSER] Q1H 03/27/20 16:45 Deep Tendon Reflexes [WOMSER] Q1H 03/27/20 17:45 Deep Tendon Reflexes [WOMSER] Q1H 03/27/20 18:45 Deep Tendon Reflexes [WOMSER] Q1H 03/27/20 19:45 MAGNESIUM [CHEM] Q6H Deep Tendon Reflexes [WOMSER] Q1H 03/27/20 20:45 Deep Tendon Reflexes [WOMSER] Q1H 03/27/20 21:00 Labetalol [Normodyne] 200 mg PO BID 03/27/20 21:45 Deep Tendon Reflexes [WOMSER] Q1H 03/27/20 22:45 Deep Tendon Reflexes [WOMSER] 03/27/20 23:45 Deep Tendon Reflexes [WOMSER] 03/28/20 00:45 Deep Tendon Reflexes [WOMSER] 03/28/20 01:45 MAGNESIUM [CHEM] Q6H Deep Tendon Reflexes [WOMSER] 03/28/20 02:45 Deep Tendon Reflexes [WOMSER] 03/28/20 03:45 Deep Tendon Reflexes [WOMSER] 03/28/20 04:45 Deep Tendon Reflexes [WOMSER] 03/28/20 05:45 Deep Tendon Reflexes [WOMSER] 03/28/20 06:45 Deep Tendon Reflexes [WOMSER] 03/28/20 07:45 MAGNESIUM [CHEM] Q6H - Assessment Assessment:: 25yo P1 s/p PPD2 , preclampsia severe preclampsia,normal lochia - Plan Plan:: Start Magnessium Monitor I & Os BP check per routine Mag check Monitor for signs and symptoms of mag toxicity Labetalol 200mg bid
[2020-03-27] MEDS ORDERED: Sodium Chloride 0.9% 10 ML Syringe FLUSH PRN (07:51)
[2020-03-27] MEDS ORDERED: Sodium Chloride 0.9% 10 ML SDV IV PRN (07:51)
[2020-03-27] MEDS ORDERED: Magnesium Sulfate/Water 20 GM/500 ML BAG IV SCH (08:00)
[2020-03-27] MEDS ORDERED: Sodium Chloride 0.9% 1,000 ML IV SCH (08:00)
[2020-03-27] MEDS: Magnesium Sulfate/Water 20 GM/500 ML BAG IV SCH (08:37)
--- NOTE | 2020-03-27 11:43 | OR ---
SURGEON: GRICELDA ROMEO DATE OF PROCEDURE: 03/25/2020 PREOPERATIVE DIAGNOSES: A 25-year-old, G1, P0, at 41 weeks and 1 day, admitted in early labor. Mild preeclampsia, group B streptococcus positive, Rh negative. POSTOPERATIVE DIAGNOSES: A 25-year-old G1, P0, at 41 weeks and 1 day, admitted in early labor. Mild preeclampsia, group B streptococcus positive, Rh negative. PROCEDURES: 1. Normal spontaneous vaginal delivery. 2. Repair of second-degree laceration and repair of right mediolateral episiotomy. ESTIMATED BLOOD LOSS: 300. IV FLUIDS: Pitocin running. ANESTHESIA: Epidural. NOTES AND FINDINGS: A live male delivered at 40 weeks 1 day. score of 8 and 8. Weight is 3740 g, delivered at 1822. BRIEF HISTORY ABOUT THE PATIENT: She is a 25-year-old, G1, P0 at 41 weeks and 1 day, who came in complaining of contractions. She was about 3 cm dilated. She had elevated blood pressures like 130s to 140s over 80s to 90s. PIH labs done were normal. Protein- creatinine ratio was 0.6, hence she was labeled mild preeclampsia. The patient was allowed to progress. She made change 6 cm, at which point AROM was done. Clear fluid was noted. She had a category 1 tracing. The patient had made normal labor progress and she became fully dilated. DESCRIPTION OF PROCEDURE: With the patient being fully dilated, she was encouraged to push with good pushing effort. She delivered the head, but there was some tightening of the perineum, so a right mediolateral episiotomy was done. The head was delivered without difficulty. The shoulders were delivered and the body was placed on the maternal abdomen. Delayed cord clamping was observed. Cord blood gases were obtained. Cord blood was obtained and placenta was delivered via controlled cord traction. The perineum was inspected. A second-degree laceration was noted, which was repaired in layers with 2-0 Monocryl and all instrument and pad counts were correct x2. RODOLFO / RASHIDA /[id number] [place]
[2020-03-27] MEDS: Ibuprofen 800 MG Tab PO PRN (17:25)
[2020-03-27] MEDS: Labetalol 100 MG Tab PO SCH (20:43)
[2020-03-28] MEDS: Acetaminophen 500 MG Tab PO PRN ×2 (05:28→16:33)
[2020-03-28] MEDS: Ibuprofen 800 MG Tab PO PRN (05:28)
[2020-03-28] MEDS: Magnesium Sulfate/Water 20 GM/500 ML BAG IV SCH (06:26)
[2020-03-28] MEDS: Labetalol 100 MG Tab PO SCH (09:26)
--- NOTE | 2020-03-28 10:27 | PCM.PNPP ---
- General Info Date of Service: 03/28/20 Subjective Update: 25yo P1 s/p PPD3 denies headache , RUQ pain and BV Normal lochia Patient is s/p Magnessium BPs 120 - 130s /70s - 90s , Functional Status: Reports: Pain Controlled, Tolerating Diet, Ambulating, Urinating - Review of Systems General: Reports: No Symptoms HEENT: Reports: No Symptoms Pulmonary: Reports: No Symptoms Cardiovascular: Reports: No Symptoms Gastrointestinal: Reports: No Symptoms Genitourinary: Reports: No Symptoms Musculoskeletal: Reports: No Symptoms Skin: Reports: No Symptoms Neurological: Reports: No Symptoms Psychiatric: Reports: No Symptoms - General Info Date of Service: 03/28/20 - Patient Data Vital Signs - Most Recent: Last Vital Signs Temp 36.1 C 03/28/20 08:00 Pulse 68 03/28/20 10:15 Resp 17 03/28/20 10:15 BP 137/74 03/28/20 10:15 Pulse Ox 97 03/28/20 10:15 Weight - Most Recent: 78.018 kg I&O - Last 24 Hours: Intake & Output 03/27/20 03/28/20 03/28/20 22:59 06:59 14:59 Intake Total 835 Output Total 1700 1900 800 Balance -865 -1900 -800 Lab Results - Last 24 Hours: Laboratory Results - last 24 hr 03/27/20 03/27/20 03/28/20 Range/Units 12:29 18:35 00:39 Magnesium 4.4 H 5.6 H 5.8 H (1.8-2.4) mg/dL 03/28/20 Range/Units 06:27 Magnesium 6.0 H (1.8-2.4) mg/dL Med Orders - Current: Current Medications Acetaminophen (Tylenol Extra Strength) 500 mg PO Q4H PRN PRN Reason: Pain Acetaminophen (Tylenol Extra Strength) 1,000 mg PO Q4H PRN PRN Reason: Pain Last Admin: 03/28/20 05:28 Dose: 1,000 mg Documented by: Benzocaine/Menthol (Dermoplast Pain Relief 20%-0.5% [place]) 78 gm TOP ASDIRECTED PRN PRN Reason: Perineal Comfort Measure Last Admin: 03/25/20 22:40 Dose: 1 can Documented by: Bisacodyl (Dulcolax) 10 mg RECTAL ONETIME PRN PRN Reason: Constipation Butorphanol Tartrate (Stadol) 1 mg IVPUSH Q1H PRN PRN Reason: Pain Calcium Gluconate (Calcium Gluconate) 1 gm IV ASDIRECTED PRN PRN Reason: respiratory distress Calcium Gluconate (Calcium Gluconate) 1 gm IV ASDIRECTED PRN PRN Reason: respiratory distress Carboprost Tromethamine (Hemabate Ds) 250 mcg IM ASDIRECTED PRN PRN Reason: Post Hemorrhage Docusate Sodium (Colace) 100 mg PO BID PRN PRN Reason: Constipation Last Admin: 03/26/20 08:02 Dose: 100 mg Documented by: Emollient Ointment (Lansinoh Hpa) 0 gm TOP ASDIRECTED PRN PRN Reason: Sore Nipples Last Admin: 03/25/20 22:41 Dose: 1 tube Documented by: Lactated Ringer's (Ringers, Lactated) 1,000 mls @ 150 mls/hr IV ASDIRECTED ANNA Last Admin: 03/25/20 12:26 Dose: 999 mls/hr Documented by: Oxytocin/Sodium Chloride (Oxytocin 30 Unit/500 Ml-Ns) 30 unit in 500 mls @ 999 mls/hr IV TITRATE ANNA Last Admin: 03/25/20 18:34 Dose: 999 mls/hr Documented by: Tranexamic Acid 1,000 mg/ (Sodium Chloride) 110 mls @ 660 mls/hr IV ONETIME PRN PRN Reason: Bleeding Oxytocin/Sodium Chloride (Oxytocin 30 Unit/500 Ml-Ns) 30 unit in 500 mls @ 2 mls/hr IV TITRATE ANNA; Protocol Magnesium Sulfate (Magnesium Sulfate In Water Premix) 20 gm in 500 mls @ 50 mls/hr IV ASDIRECTED ANNA; Protocol Last Admin: 03/28/20 06:26 Dose: 2 gm/hr, 50 mls/hr Documented by: Magnesium Sulfate (Magnesium Sulfate In Water Premix) 20 gm in 500 mls @ 50 mls/hr IV ASDIRECTED ANNA; Protocol Sodium Chloride (Normal Saline) 1,000 mls @ 5 mls/hr IV ASDIRECTED ANNA Last Admin: 03/27/20 08:18 Dose: 5 mls/hr Documented by: Ibuprofen (Motrin) 400 mg PO Q4H PRN PRN Reason: Pain Ibuprofen (Motrin) 800 mg PO Q6H PRN PRN Reason: Pain Last Admin: 03/28/20 05:28 Dose: 800 mg Documented by: Labetalol HCl (Normodyne) 200 mg PO BID ANNA Last Admin: 03/28/20 09:26 Dose: 200 mg Documented by: Lidocaine HCl (Xylocaine 1%) 50 ml INJECT ONETIME PRN PRN Reason: Laceration repair Last Admin: 03/25/20 18:33 Dose: 50 ml Documented by: Methylergonovine Maleate (Methergine) 0.2 mg IM ASDIRECTED PRN PRN Reason: Post Hemorrhage Misoprostol (Cytotec) 25 mcg VAG ONETIME PRN PRN Reason: Cervical Ripening Misoprostol (Cytotec) 25 mcg VAG Q4H PRN PRN Reason: Cervical Ripening Nalbuphine HCl (Nubain) 10 mg IVPUSH Q1H PRN PRN Reason: Pain (severe 7-10) Ondansetron HCl (Zofran) 4 mg IVPUSH Q4H PRN PRN Reason: Nausea/Vomiting Oxycodone HCl (Oxycodone) 5 mg PO Q2H PRN PRN Reason: Pain Sodium Chloride (Saline Flush) 10 ml FLUSH ASDIRECTED PRN PRN Reason: Keep Vein Open Sodium Chloride (Saline Flush) 2.5 ml FLUSH ASDIRECTED PRN PRN Reason: Keep Vein Open Sodium Chloride (Normal Saline) 10 ml IV ASDIRECTED PRN PRN Reason: IV Use Sodium Chloride (Saline Flush) 10 ml FLUSH ASDIRECTED PRN PRN Reason: Keep Vein Open Sodium Chloride (Normal Saline) 10 ml IV ASDIRECTED PRN PRN Reason: IV Use Sterile Water (Sterile Water For Irrigation) 1,000 ml IRR ASDIRECTED PRN PRN Reason: delivery Terbutaline Sulfate (Brethine) 0.25 mg SUBCUT ASDIRECTED PRN PRN Reason: Tacysystole Witch Maxine (Tucks) 1 pad TOP ASDIRECTED PRN PRN Reason: comfort care Last Admin: 03/25/20 22:40 Dose: 1 tub Documented by: Discontinued Medications Ampicillin Sodium (Ampicillin) Confirm Administered Dose 4 gm IV .STK-MED ONE Stop: 03/25/20 09:39 Last Admin: 03/25/20 19:52 Dose: Not Given Documented by: Bupivacaine HCl (Sensorcaine-Mpf 0.25%) Confirm Administered Dose 10 ml .ROUTE .STK-MED ONE Stop: 03/25/20 12:21 Last Admin: 03/25/20 19:52 Dose: Not Given Documented by: Fentanyl (Sublimaze) Confirm Administered Dose 100 mcg .ROUTE .STK-MED ONE Stop: 03/25/20 12:20 Last Admin: 03/25/20 19:52 Dose: Not Given Documented by: Fentanyl (Sublimaze) Confirm Administered Dose 100 mcg .ROUTE .STK-MED ONE Stop: 03/25/20 17:23 Last Admin: 03/25/20 19:52 Dose: Not Given Documented by: Ampicillin Sodium 2 gm/ Sodium (Chloride) 100 mls @ 200 mls/hr IV ONETIME ONE Stop: 03/25/20 08:59 Last Admin: 03/25/20 09:45 Dose: 200 mls/hr Documented by: Ampicillin Sodium 1 gm/ Sodium (Chloride) 100 mls @ 200 mls/hr IV ONETIME ONE Stop: 03/25/20 12:59 Ampicillin Sodium 1 gm/ Sodium (Chloride) 50 mls @ 100 mls/hr IV Q4H [facility] Last Admin: 03/25/20 16:16 Dose: 100 mls/hr Documented by: Fentanyl/Bupivacaine HCl (Fentanyl/Bupivacaine/Ns 2 Mcg-0.125% 250 Ml) Confirm Administered Dose 250 mls @ as directed .ROUTE .STK-MED ONE Stop: 03/25/20 12:21 Last Admin: 03/25/20 19:52 Dose: Not Given Documented by: Magnesium Sulfate 4 gm/ Premix 100 mls @ 300 mls/hr IV BOLUS ONE Stop: 03/27/20 07:59 Last Admin: 03/27/20 08:20 Dose: 300 mls/hr Documented by: Labetalol HCl (Normodyne) 100 mg PO BID [facility] Last Admin: 03/26/20 17:43 Dose: 100 mg Documented by: Labetalol HCl (Normodyne) 200 mg PO BID ANNA Stop: 03/27/20 07:30 Last Admin: 03/27/20 06:33 Dose: 200 mg Documented by: Lidocaine/Epinephrine (Xylocaine 2% With Epinephrine 1:100,000) 20 ml .XX .STK- MED ONE Stop: 03/25/20 17:23 Misoprostol (Cytotec) 200 mcg PO ONETIME PRN PRN Reason: Post Hemorrhage - Interaction Support Person: - Recovery Exam Fundal Tone: Firm Fundal Level: 2 Fingerbreadths Below Umbilicus Fundal Placement: Midline Lochia Amount: Scant Lochia Color: Rubra/Red Perineum Description: Intact, Minimal Bruising/Swelling Episiotomy/Laceration: Approximated Bladder Status: Indwelling Catheter in Place Urinary Elimination: Indwelling Catheter - Exam General: Alert HEENT: Pupils Equal Neck: Supple Lungs: Clear to Auscultation Cardiovascular: Regular Rate, Regular Rhythm Extremities: Normal Inspection - Problem List & Annotations (1) Preeclampsia SNOMED Code(s): 448101678 Code(s): O14.90 - UNSPECIFIED PRE-ECLAMPSIA, UNSPECIFIED TRIMESTER Status: Acute Current Visit: Yes Qualifiers: Trimester: third trimester Qualified Code(s): O14.93 - Unspecified pre- eclampsia, third trimester - Problem List Review Problem List Initiated/Reviewed/Updated: Yes - My Orders Last 24 Hours: My Active Orders 03/27/20 09:45 Deep Tendon Reflexes [WOMSER] [facility] 03/27/20 10:00 Deep Tendon Reflexes [WOMSER] [facility] 03/27/20 10:45 Deep Tendon Reflexes [WOMSER] [facility] 03/27/20 11:00 Deep Tendon Reflexes [WOMSER] [facility] 03/27/20 11:45 Deep Tendon Reflexes [WOMSER] [facility] 03/27/20 12:00 Deep Tendon Reflexes [WOMSER] [facility] 03/27/20 12:45 Deep Tendon Reflexes [WOMSER] [facility] 03/27/20 13:00 Deep Tendon Reflexes [WOMSER] [facility] 03/27/20 13:45 Deep Tendon Reflexes [WOMSER] [facility] 03/27/20 14:00 Deep Tendon Reflexes [WOMSER] [facility] 03/27/20 14:45 Deep Tendon Reflexes [WOMSER] [facility] 03/27/20 15:00 Deep Tendon Reflexes [WOMSER] [facility] 03/27/20 15:45 Deep Tendon Reflexes [WOMSER] [facility] 03/27/20 16:00 Deep Tendon Reflexes [WOMSER] [facility] 03/27/20 16:45 Deep Tendon Reflexes [WOMSER] [facility] 03/27/20 17:00 Deep Tendon Reflexes [WOMSER] [facility] 03/27/20 17:45 Deep Tendon Reflexes [WOMSER] [facility] 03/27/20 18:00 Deep Tendon Reflexes [WOMSER] [facility] 03/27/20 18:45 Deep Tendon Reflexes [WOMSER] [facility] 03/27/20 19:00 Deep Tendon Reflexes [WOMSER] [facility] 03/27/20 19:45 Deep Tendon Reflexes [WOMSER] [facility] 03/27/20 20:00 Deep Tendon Reflexes [WOMSER] [facility] 03/27/20 20:45 Deep Tendon Reflexes [WOMSER] [facility] 03/27/20 21:00 Labetalol [Normodyne] 200 mg PO BID Deep Tendon Reflexes [WOMSER] [facility] 03/27/20 21:45 Deep Tendon Reflexes [WOMSER] [facility] 03/27/20 22:00 Deep Tendon Reflexes [WOMSER] [facility] 03/27/20 22:45 Deep Tendon Reflexes [WOMSER] [facility] 03/27/20 23:00 Deep Tendon Reflexes [WOMSER] [facility] 03/27/20 23:45 Deep Tendon Reflexes [WOMSER] [facility] 03/28/20 00:00 Deep Tendon Reflexes [WOMSER] [facility] 03/28/20 00:45 Deep Tendon Reflexes [WOMSER] [facility] 03/28/20 01:00 Deep Tendon Reflexes [WOMSER] [facility] 03/28/20 01:45 Deep Tendon Reflexes [WOMSER] [facility] 03/28/20 02:00 Deep Tendon Reflexes [WOMSER] [facility] 03/28/20 02:45 Deep Tendon Reflexes [WOMSER] [facility] 03/28/20 03:00 Deep Tendon Reflexes [WOMSER] [facility] 03/28/20 03:45 Deep Tendon Reflexes [WOMSER] [facility] 03/28/20 04:00 Deep Tendon Reflexes [WOMSER] [facility] 03/28/20 04:45 Deep Tendon Reflexes [WOMSER] [facility] 03/28/20 05:00 Deep Tendon Reflexes [WOMSER] [facility] 03/28/20 05:45 Deep Tendon Reflexes [WOMSER] [facility] 03/28/20 06:00 Deep Tendon Reflexes [WOMSER] Q1H 03/28/20 06:45 Deep Tendon Reflexes [WOMSER] Q1H 03/28/20 07:00 Deep Tendon Reflexes [WOMSER] Q1H - Assessment Assessment:: 25yo P1 s/p PPD3 severe preclampsia, normal lochia S/P Magnessium , BP now good control - Plan Plan:: Discharge home Labetalol 200mg bid
== END 2020-03-28 17:55 | disposition home or self-care (01) | DRG 560 ==
LOC: MW.OBCHECK 07:10 → MW.OB 07:11 → MW.OBCHECK 08:24 → MW.OB 08:25 → OBSVTOIN 19:16 → MW.OB 23:00
PROVIDERS: ADMIT Obstetrics & Gynecology; ATTEND Obstetrics & Gynecology
PROC: 10E0XZZ Delivery of Products of Conception, External Approach (ICD-10-PCS; principal; 2020-03-25)
PROC: 3E0R3BZ Introduction of Anesthetic Agent into Spinal Canal, Percutaneous Approach (ICD-10-PCS; 2020-03-25)
PROC: 10907ZC Drainage of Amniotic Fluid, Therapeutic from Products of Conception, Via Natural or Artificial Opening (ICD-10-PCS; 2020-03-25)
PROC: 0W8NXZZ Division of Female Perineum, External Approach (ICD-10-PCS; 2020-03-25)
DX: O48.0 Post-term pregnancy (principal); Z37.0 Single live birth; O99.824 Streptococcus B carrier state complicating childbirth; O99.334 Smoking (tobacco) complicating childbirth; F17.210 Nicotine dependence, cigarettes, uncomplicated; O11.4 Pre-existing hypertension with pre-eclampsia, complicating childbirth; O70.1 Second degree perineal laceration during delivery; Z3A.41 41 weeks gestation of pregnancy; Z20.828 Contact with and (suspected) exposure to other viral communicable diseases
CPT/HCPCS: 01967; 36415; 51702; 59025; 59409; 80053; 81001; 82570; 83735; 84156; 84550; 85014; 85018; 85025; 85027; 86592; 86850; 86900; 86901; A9270-GY; J0290; J2001; J2590; J3010; J3475; J3490; J7030; J7050; J7120; U0002